=== PATIENT | female | born 1945 | race Caucasian/White ===

== ENCOUNTER → 2017-10-20 | Outpatient (CLI) | payer MEDICARE, OTHER ==
[~2017-10-20] MED LIST: ALPR1TAB7 PO; ASPI-231 PO; FLUO-125 PO; FURO20TA PO; LORA1TAB12 PO; METO-169 PO; OMEP20CA74 PO; OXY5T PO; PAR20T PO; POTA8TAB2 PO; PROP1CAP PO; WARF5TAB71 PO; [UNRECOGNIZED DRUG - CODE]
[2017-10-20 10:44] LABS: Basophils # (auto) 0 uL; Basophils % (auto) 0.3 % (0.0-2.0); Eosinophils # (auto) 0.1 uL; Eosinophils % (auto) 0.8 % (0.0-7.0); Hematocrit 48.8 % (36.0-46.0); Hemoglobin 16.4 g/dL (12.2-16.2); Lymphocytes # (auto) 2.5 uL; Lymphocytes % (auto) 26.6 % (10.0-50.0); Mean Corpuscular Hemoglobin 31.5 pg (28.0-32.0); Mean Corpuscular Hgb Conc. 33.5 g/dL (32.0-36.0); Monocytes # (auto) 0.7 uL; Monocytes % (auto) 7.4 % (0.0-12.0); Neutrophils # (auto) 6.2 uL; Neutrophils % (auto) 64.9 % (37.0-80.0); Platelet Count (auto) 299 10^3/uL (140-450); Red Blood Cells 5.19 10^6/uL (4.0-5.20); Red Cell Distribution Width 13.7 % (11.8-14.3); White Blood Cell 9.5 10^3/uL (4.4-10.8)
[2017-10-20 11:05] LABS: Albumin 3.9 g/dL (3.4-5.0); Bilirubin, Total 0.6 mg/dL (0.2-1.0); Calcium 9.3 mg/dL (8.5-10.1); Potassium 4.3 mmol/L (3.5-5.1)
== END | disposition home or self-care (01) ==
LOC: LAB 10:05
PROVIDERS: ATTEND Physician Assistant
DX: J44.9 Chronic obstructive pulmonary disease, unspecified (principal); E11.319 Type 2 diabetes mellitus with unspecified diabetic retinopathy without macular edema; N18.2 Chronic kidney disease, stage 2 (mild); F41.1 Generalized anxiety disorder
CPT/HCPCS: 36415; 80053; 80061; 83036; 85025

== ENCOUNTER → 2018-06-15 | Outpatient (CLI) | payer MEDICARE ==
[2018-06-15 11:02] LABS: Basophils # (auto) 0 uL; Basophils % (auto) 0.3 % (0.0-2.0); Eosinophils # (auto) 0.1 uL; Eosinophils % (auto) 0.8 % (0.0-7.0); Hematocrit 48.5 % (36.0-46.0); Hemoglobin 16.2 g/dL (12.2-16.2); Lymphocytes # (auto) 2.2 uL; Lymphocytes % (auto) 27.4 % (10.0-50.0); Mean Corpuscular Hemoglobin 32.3 pg (28.0-32.0); Mean Corpuscular Hgb Conc. 33.4 g/dL (32.0-36.0); Mean Corpuscular Volume 96.8 fL (80.0-100.0); Monocytes # (auto) 0.6 uL; Neutrophils # (auto) 5.1 uL; Neutrophils % (auto) 63.5 % (37.0-80.0); Nucleated Red Blood Cells % 0.1 %; Platelet Count (auto) 285 10^3/uL (140-450); Red Blood Cells 5.01 10^6/uL (4.0-5.20); White Blood Cell 8.1 10^3/uL (4.4-10.8)
[2018-06-15 11:39] LABS: Potassium 4.8 mmol/L (3.5-5.1)
[2018-06-15 11:46] LABS: BUN/Creatinine Ratio 10.8; Bilirubin, Total 0.4 mg/dL (0.2-1.0); Calcium 9.5 mg/dL (8.5-10.1); Total Protein 7.9 g/dL (6.4-8.2)
== END | disposition home or self-care (01) ==
LOC: LAB 10:47
PROVIDERS: ATTEND Physician Assistant
DX: E11.319 Type 2 diabetes mellitus with unspecified diabetic retinopathy without macular edema (principal); E78.00 Pure hypercholesterolemia, unspecified; J44.9 Chronic obstructive pulmonary disease, unspecified; I11.0 Hypertensive heart disease with heart failure; I50.30 Unspecified diastolic (congestive) heart failure
CPT/HCPCS: 36415; 80053; 80061; 83036; 85025

== ENCOUNTER 2018-07-20 12:15 | Inpatient (IN) | payer MEDICARE, OTHER ==
[~2018-07-20] VITALS: Ht 154.9 cm; Wt 58.9 kg
[2018-07-20] MEDS ORDERED: SODIUM CHLORIDE 0.9% 1,000 ML IV ONE ×3 (12:34→16:00)
[2018-07-20] MEDS ORDERED: IPRATROPIUM BROM 0.5 MG/2.5ML INH SOL HHN ONE (13:15)
[2018-07-20] MEDS ORDERED: methylPREDNISolone SOD SUCC 125 MG/2 ML VL IV ONE (13:15)
[2018-07-20] MEDS ORDERED: ALBUTEROL SULF 2.5 MG/0.5ML(0.5%) NEB SOLN HHN ONE (13:15)
[2018-07-20 13:25] LABS: Basophils # (auto) 0.1 uL; Basophils % (auto) 0.5 % (0.0-2.0); Eosinophils # (auto) 0 uL; Hematocrit 46.6 % (36.0-46.0); Hemoglobin 15.7 g/dL (12.2-16.2); Lymphocytes # (auto) 1.2 uL; Mean Corpuscular Hemoglobin 32.3 pg (28.0-32.0); Mean Corpuscular Hgb Conc. 33.6 g/dL (32.0-36.0); Monocytes # (auto) 1.1 uL; Monocytes % (auto) 5.8 % (0.0-12.0); Neutrophils # (auto) 17.2 uL; Neutrophils % (auto) 87.7 % (37.0-80.0); Platelet Count (auto) 374 10^3/uL (140-450); Red Blood Cells 4.85 10^6/uL (4.0-5.20); White Blood Cell 19.6 10^3/uL (4.4-10.8)
[2018-07-20] MEDS ORDERED: LEVOFLOXACIN 500MG 100 ML IV ONE (14:00)
[2018-07-20 14:21] LABS: Urine Bacteria NONE SEEN /hpf (None Seen); Urine Blood 2+ /uL (Negative); Urine WBC 2 /hpf (0 - 5)
[2018-07-20 14:23] LABS: Albumin 4.2 g/dL (3.4-5.0); Calcium 9.5 mg/dL (8.5-10.1); Potassium 3.1 mmol/L (3.5-5.1)
[2018-07-20 14:25] LABS: BUN/Creatinine Ratio 13.3; Bilirubin, Total 0.7 mg/dL (0.2-1.0); Total Protein 8.6 g/dL (6.4-8.2)
[2018-07-20] MEDS ORDERED: LORazepam 2MG/ML-1ML VIAL IV ONE (14:45)
[2018-07-20 14:48] LABS: Lactic Acid w/Reflex 2.4 mmol/L (0.4-2.0)
[2018-07-20] MEDS ORDERED: VANCOMYCIN PER PHARMACY 0 MG IV SCH (16:00)
[2018-07-20] MEDS ORDERED: HYDROcodone-ACET 5/325MG TAB PO PRN (16:00)
[2018-07-20] MEDS ORDERED: PANTOPRAZOLE 40 MG/10 ML VIAL IV ONE (16:00)
[2018-07-20] MEDS ORDERED: PIPERACILLIN-TAZOB 3.375GM 100 ML IV ONE (16:00)
[2018-07-20] MEDS ORDERED: NITROGLYCERIN 0.4 MG SL TAB SL PRN (16:00)
[2018-07-20] MEDS ORDERED: DEXTROSE (50%) 50ML SYRG IV PRN (16:00)
[2018-07-20] MEDS: POTASSIUM CHL 20MEQ/100ML 100 ML IV SCH ×2 (16:00→18:22)
[2018-07-20] MEDS ORDERED: MORPHINE SULFATE 4 MG/ML SYR/VIAL IV PRN (16:00)
[2018-07-20 16:28] LABS: INR 1.07 (0.9-1.15); Partial Thromboplastin Time 27.4 sec (23.78-33.04); Prothrombin Time 11.4 sec (9.27-12.13)
[2018-07-20 16:30] LABS: Alcohol, Urine < 3.0 mg/dL (0-5); Amphetamine Screen, Urine NEGATIVE (NEGATIVE); Barbiturate Scree,Urine NEGATIVE (NEGATIVE); Benzodiazephine Screen, Urine NEGATIVE (NEGATIVE); Cannabinoid Screen, Urine NEGATIVE (NEGATIVE); Cocaine Screen, Urine NEGATIVE (NEGATIVE); Opiate Scree,Urine NEGATIVE (NEGATIVE); Phencyclidine Screen, Urine NEGATIVE (NEGATIVE)
[2018-07-20] MEDS ORDERED: VANCOMYCIN 750 MG in D5W 5% 250 ML IV SCH (17:00)
[2018-07-20] MEDS: InsuLIN REG 1unit/0.01ml Soln (100units/ml) SC SCH (17:58)
[2018-07-20] MEDS: ACCU-CHEK COMFORT CURVE STRIP VI SCH ×2 (18:03→23:31)
[2018-07-20] MEDS: BUDESONIDE (INHALATION) 0.5 MG/2 ML NEB NEB SCH (18:20)
[2018-07-20] MEDS: IPRATROPIUM BROM 0.5 MG/2.5ML INH SOL NEB SCH (18:20)
[2018-07-20] MEDS: ALBUTEROL SULF 2.5 MG/0.5ML(0.5%) NEB SOLN NEB PRN (18:32)
[2018-07-20] MEDS: PIPERACILLIN-TAZOB 3.375GM 100 ML IV SCH (21:35)
--- NOTE | 2018-07-20 23:55 | NUR ---
Admit to [facility] TOBY ABBOTT admitted to [facility], A/O x 4 via gurney on cardiac sonographer, and portable 02. Patient transfered to bed, connected to unit monitoring, sinus tachycardia 112 and oxygen @ 2L/min, SPO2 98%, and weighed by bedscale. Patient oriented to Julien Queen, primary RN, unit, room, bed, and unit policies regarding patient care and visiting hours. All questions and concerns addressed, patient verbalized understanding. NOTE: MRSA swab in the nares done.
[2018-07-21] MEDS: InsuLIN REG 1unit/0.01ml Soln (100units/ml) SC SCH ×4 (00:29→18:44)
[2018-07-21] MEDS: ONDANSETRON HCL 4 MG/2 ML VIAL IV PRN ×3 (02:19→20:30)
[2018-07-21] MEDS: HYDROmorphone HCL 2 MG/ML VL IV PRN ×4 (02:19→20:31)
--- NOTE | 2018-07-21 02:19 | NUR ---
PAIN/NAUSEA: Pt c/o abdominal pain at level 6/10 and nausea. Pt requesting medication for pain. Pt states she does not think she would be able to hold down a pill d/t nausea. Pt requesting IV medication. Pt medicated w/ Dilaudid 0.5mg IV and Zofran 4mg IV as per order. To continue to monitor pt.
[2018-07-21 03:05] VITALS: BP 124/81
[2018-07-21 05:18] LABS: Basophils # (auto) 0 uL; Basophils % (auto) 0.1 % (0.0-2.0); Eosinophils # (auto) 0 uL; Hematocrit 41.1 % (36.0-46.0); Hemoglobin 13.8 g/dL (12.2-16.2); Lymphocytes # (auto) 0.9 uL; Lymphocytes % (auto) 8.4 % (10.0-50.0); Mean Corpuscular Hgb Conc. 33.6 g/dL (32.0-36.0); Mean Corpuscular Volume 95.1 fL (80.0-100.0); Monocytes # (auto) 0.4 uL; Monocytes % (auto) 3.9 % (0.0-12.0); Neutrophils # (auto) 9.7 uL; Neutrophils % (auto) 87.6 % (37.0-80.0); Platelet Count (auto) 279 10^3/uL (140-450); Red Blood Cells 4.32 10^6/uL (4.0-5.20); Red Cell Distribution Width 12.9 % (11.8-14.3)
--- NOTE | 2018-07-21 05:18 | NUR ---
Med rec reviewed and belonging list completed
[2018-07-21 05:34] LABS: INR 1.06 (0.9-1.15); Partial Thromboplastin Time 25.1 sec (23.78-33.04); Prothrombin Time 11.3 sec (9.27-12.13)
[2018-07-21 05:41] LABS: Alanine Aminotransferase 27 U/L (13-56); Alkaline Phosphatase 64 U/L (45-117); Aspartate Aminotransferase 22 U/L (15-37); Bilirubin, Total 0.4 mg/dL (0.2-1.0); GFR African American 146 mL/min; GFR Non-African American 121 mL/min; Total Protein 6.6 g/dL (6.4-8.2)
[2018-07-21 06:18] LABS: Anion Gap 12 (5-15); BUN/Creatinine Ratio 11.3; Blood Urea Nitrogen 6 mg/dL (7-18); Calcium 7.9 mg/dL (8.5-10.1); Carbon Dioxide 19 mmol/L (21-32); Chloride 109 mmol/L (98-107); Glucose 168 mg/dL (74-106); Potassium 3.3 mmol/L (3.5-5.1); Sodium 140 mmol/L (136-145)
[2018-07-21] MEDS: ACCU-CHEK COMFORT CURVE STRIP VI SCH ×3 (06:18→18:32)
[2018-07-21 06:19] LABS: Albumin 3.1 g/dL (3.4-5.0)
[2018-07-21] MEDS: PIPERACILLIN-TAZOB 3.375GM 100 ML IV SCH ×3 (06:20→21:04)
[2018-07-21] MEDS: IPRATROPIUM BROM 0.5 MG/2.5ML INH SOL NEB SCH ×4 (06:49→18:32)
[2018-07-21 08:15] VITALS: BP 120/68
--- NOTE | 2018-07-21 08:15 | NUR ---
Opening Shift Note Assumed care of patient, awake and alert. No S/S of distress/SOB or pain. Bed locked on low position, side rails up x2, bed alarms on at all times, call lin within reach, instructed on POC and to call for assist PRN, will continue to monitor for changes Q1hr and PRN.
[2018-07-21] MEDS ORDERED: PANTOPRAZOLE 40 MG/10 ML VIAL IV SCH ×2 (10:00→22:00)
[2018-07-21] MEDS: ALBUTEROL SULF 2.5 MG/0.5ML(0.5%) NEB SOLN NEB PRN ×2 (10:03→14:09)
[2018-07-21] MEDS: BUDESONIDE (INHALATION) 0.5 MG/2 ML NEB NEB SCH ×2 (10:03→18:32)
[2018-07-21 11:50] VITALS: BP 117/65
--- NOTE | 2018-07-21 12:00 | NUR ---
Patient's accucheck 147mg/dl. 2 units Insulin held. Patient on clear liquid diet with poor oral intake. Will continue to monitor.
[2018-07-21] MEDS ORDERED: POTASSIUM CHL 20 Meq TABLET PO ONE (13:15)
--- NOTE | 2018-07-21 13:19 | NUR ---
Dr Zhang at bedside, updated on patient's status. Will carry out new orders.
--- NOTE | 2018-07-21 14:16 | NUR ---
Dr Adams at bedside, updated on patient's status. Will carry out new orders.
[2018-07-21] MEDS: LORazepam 2MG/ML-1ML VIAL IV PRN (14:18)
[2018-07-21 15:55] VITALS: BP 121/65
--- NOTE | 2018-07-21 19:30 | NUR ---
SHIFT OPENING NOTE RECEIVED PATIENT AWAKE, ALERT AND ORIENTED X4. NO SOB, DISTRESS OR PAIN NOTED. ON 3L N/C. ELIAS CATH DRAINING CLEAR YELLOW URINE. INSTRUCTED ON POC AND TO CALL FOR ASSIST NEEDED. BED IS IN THE LOWEST POSITION WITH SIDE RAILS UP X2, CALL LIGHT IS WITHIN REACH.
[2018-07-21 19:55] VITALS: BP 133/75
--- NOTE | 2018-07-21 20:08 | NUR ---
FAMILY AT BEDSIDE IN FOR A SHORT VISIT.
--- NOTE | 2018-07-21 20:40 | NUR ---
CONSENTS SIGNED FOR EGD PROCEDURE TOMORROW PLACED IN FRONT OF HARD CHART. PATIENT FULLY AWARE OF REASON AND RISKS.
[2018-07-21 23:55] VITALS: BP 134/76
[2018-07-22] VITALS (7 sets, daily range): BP systolic 117–135; BP diastolic 71–82
[2018-07-22] MEDS: ACCU-CHEK COMFORT CURVE STRIP VI SCH ×4 (00:30→18:00)
--- NOTE | 2018-07-22 00:30 | NUR ---
ROUNDS PATIENT LAYING IN BED SLEEPING. NO SOB, DISTRESS, ANXIETY OR PAIN NOTED. VS STABLE. WILL CONTINUE TO MONITOR CLOSELY.
[2018-07-22] MEDS: LORazepam 2MG/ML-1ML VIAL IV PRN ×2 (01:46→10:35)
--- NOTE | 2018-07-22 03:40 | NUR ---
MORNING HYGIENE CARE FULL BED BATH PERFORMED. FULL LINEN CHANGED PERFORMED. NEW SOCKS PLACED ON PATIENT. REPOSITIONED FOR COMFORT. TOLERATED IT WELL.
[2018-07-22] MEDS: ONDANSETRON HCL 4 MG/2 ML VIAL IV PRN ×2 (03:47→07:58)
[2018-07-22] MEDS: HYDROmorphone HCL 2 MG/ML VL IV PRN ×2 (03:47→07:57)
[2018-07-22 05:20] LABS: Basophils # (auto) 0 uL; Basophils % (auto) 0.2 % (0.0-2.0); Eosinophils # (auto) 0 uL; Hematocrit 42.3 % (36.0-46.0); Hemoglobin 14.3 g/dL (12.2-16.2); Lymphocytes # (auto) 1.3 uL; Lymphocytes % (auto) 11.2 % (10.0-50.0); Mean Corpuscular Hgb Conc. 33.9 g/dL (32.0-36.0); Mean Corpuscular Volume 94.2 fL (80.0-100.0); Monocytes # (auto) 0.8 uL; Neutrophils # (auto) 9.2 uL; Neutrophils % (auto) 81.6 % (37.0-80.0); Nucleated Red Blood Cells % 0.1 %; Platelet Count (auto) 291 10^3/uL (140-450); Red Blood Cells 4.49 10^6/uL (4.0-5.20); Red Cell Distribution Width 12.9 % (11.8-14.3); White Blood Cell 11.3 10^3/uL (4.4-10.8)
[2018-07-22] MEDS: InsuLIN REG 1unit/0.01ml Soln (100units/ml) SC SCH ×4 (05:28→18:00)
[2018-07-22] MEDS: PIPERACILLIN-TAZOB 3.375GM 100 ML IV SCH ×2 (05:28→14:00)
[2018-07-22 05:40] LABS: Calcium 8.4 mg/dL (8.5-10.1)
[2018-07-22 05:42] LABS: BUN/Creatinine Ratio 11.4
--- NOTE | 2018-07-22 05:43 | NUR ---
REPORT GIVEN TO TASNEEM MADSEN IN TELE ALL QUESTIONS ANSWERED.
--- NOTE | 2018-07-22 05:47 | NUR ---
PATIENT TRANSPORTED TO ROOM 290B BY BOILING TUB OPERATOR YVONNE AND EVETTE LAM. CONNECTED TO PORTABLE 02. TRANSPORTED VIA BED. ALL BELONGINGS TAKEN WITH PATIENT.
[2018-07-22 05:50] LABS: Potassium 2.9 mmol/L (3.5-5.1)
--- NOTE | 2018-07-22 05:56 | NUR ---
Critical lab Patient's potassium this AM is 2.9, yesterday morning was 3.3. Patient NPO for EGD this AM. Hospitalist paged per protocol.
[2018-07-22] MEDS: BUDESONIDE (INHALATION) 0.5 MG/2 ML NEB NEB SCH (06:09)
[2018-07-22] MEDS: IPRATROPIUM BROM 0.5 MG/2.5ML INH SOL NEB SCH ×4 (06:10→18:58)
[2018-07-22] MEDS: ALBUTEROL SULF 2.5 MG/0.5ML(0.5%) NEB SOLN NEB PRN (06:10)
--- NOTE | 2018-07-22 06:50 | NUR ---
Return page Hospitalist Sarbjit returned page regarding critical lab. Updated on patient status and situation, new orders received for IV potassium.
[2018-07-22] MEDS ORDERED: POTASSIUM CHL 20MEQ/100ML 100 ML IV ONE (07:00)
--- NOTE | 2018-07-22 07:00 | NUR ---
Potassium Potassium not available through pyxis as of yet. Patient still running zosyn IV. Will endorse to day shift RN.
--- NOTE | 2018-07-22 07:52 | NUR ---
Potassium started This RN started potassium at request of day shift RN.
--- NOTE | 2018-07-22 07:57 | NUR ---
Patient with facial grimacing noted, stated her back and legs hurt, pain level at 10/10 at this time. Patient stated she's nauseous. Dilaudid Inj given for pain, Zofran Inj given for nausea. Patient scheduled for EGD today.
--- NOTE | 2018-07-22 08:03 | NUR ---
Called Pre Op. Spoke with Pre Op RN Manisha. Manisha said she's waiting for a call back from Roger Hamilton regarding patient's K = 2.9*L. Patient on Potassium Chl 20 Meq as ordered. Patient scheduled for EGD today. Manisha to call me back.
[2018-07-22] MEDS ORDERED: NALOXONE HCL 0.4 MG/ML VIAL ONE (08:50)
[2018-07-22] MEDS ORDERED: SODIUM CHLORIDE LOCK 10 ML ONE (08:51)
[2018-07-22] MEDS ORDERED: FLUMAZENIL 0.1 MG/ML INJ 10ML MDV IV ONE (08:51)
[2018-07-22] MEDS ORDERED: MIDAZOLAM HCL 5 MG/ML-1ML VIAL ONE (08:51)
[2018-07-22] MEDS ORDERED: fentaNYL CITRATE 100 MCG/2 ML VL ONE (08:51)
[2018-07-22] MEDS ORDERED: diphenhdrAMINE 50mg/ml (500mg/10ml VIAL) ONE (08:51)
[2018-07-22] MEDS ORDERED: LIDOCAINE VISCOUS 2% 15ML UD ONE (08:51)
--- NOTE | 2018-07-22 09:00 | NUR ---
Transferred patient via bed to Pre Op for EGD. Patient awake, oriented x4. No acute distress noted. Two IV lines intact and patent. Endorsed patient to Pre Op RN Manisha.
[2018-07-22] MEDS ORDERED: PANTOPRAZOLE 40 MG TAB PO SCH (10:00)
--- NOTE | 2018-07-22 10:06 | NUR ---
Patient back to room post EGD. Patient awake, oriented x4. No acute distress noted. New diet ordered by Roger Hamilton Bed alarm on.
--- NOTE | 2018-07-22 10:07 | NUR ---
Wrist watch and Life Alert bracelet given back to patient.
--- NOTE | 2018-07-22 10:35 | NUR ---
Patient stated she's having anxiety, asked for Ativan. Ativan IVP given as ordered.
--- NOTE | 2018-07-22 13:50 | NUR ---
Dr. Zhang ordered to check O2 Sat on room air.
[2018-07-22] MEDS ORDERED: POTASSIUM CHL 20 Meq TABLET PO ONE (14:00)
--- NOTE | 2018-07-22 14:00 | NUR ---
PT REFUSED MED NEB TX, PT SAID SHE IS BEING DISCHARGE AND DOESN'T NEED A TX. PT IN NO RESPIRATORY DISTRESS, NO SOB NOTED. PT ON 2L NC WITH A SPO2 94%, HR 108, RR 18 WITH CLEAR/DIMINISHED BS. WILL CONTINUE TO MONITOR PT.
--- NOTE | 2018-07-22 14:05 | NUR ---
O2 Sat from 91% to 90% to 89% to 87% to 84% on Room air. Dr. Zhang made aware. Patient placed back on O2 at 2 LPM via nasal cannula. O2 Sat at 92% to 93% on O2 at 2 LPM via nasal cannula. Heart Rate >100.
--- NOTE | 2018-07-22 14:37 | NUR ---
Potassium level as per Laboratory at 1508 pm as ordered. Pending [facility] w/ co ox.
--- NOTE | 2018-07-22 14:40 | NUR ---
RT at bedside for ABGs.
--- NOTE | 2018-07-22 14:57 | NUR ---
Respiratory Therapist spoke with Dr. Zhang that patient qualifies for home O2. to put in new orders.
--- NOTE | 2018-07-22 14:58 | NUR ---
Dr. Zhang to put in orders for home O2.
--- NOTE | 2018-07-22 15:16 | NUR ---
Paged Dr. Zhang. Waiting for MD to call back.
--- NOTE | 2018-07-22 15:17 | NUR ---
Dr. Zhang called back. to put in orders for home O2.
--- NOTE | 2018-07-22 15:20 | NUR ---
Called Tooling Manager Nakita. Phone on voicemail. Left a message to call back.
--- NOTE | 2018-07-22 15:32 | NUR ---
Spoke with Flow Trader Nakita regarding orders for home O2.
--- NOTE | 2018-07-22 16:00 | NUR ---
assessment Per consult home 02 ar 2L/min via nasal canula continuous. Patient qualifies per ABG. PERRY order sent to [facility] [phone]. Waiting on reply back of ETA now. Addendum: 07/22/18 at 1601 by Nakita Ponce Amended: Links added.
--- NOTE | 2018-07-22 16:30 | NUR ---
Explained to patient she has orders for discharge today, but she needs home O2 as per MD. O2 Sat drops to as low as 84% on room air, patient qualifies for home O2 as per ABGs. Risks and benefits explained regarding the need for home oxygen. Patient said she's willing to wait for the home O2.
--- NOTE | 2018-07-22 16:34 | NUR ---
Patient stated she's in pain. [place] 5/325 PO given as ordered.
--- NOTE | 2018-07-22 17:00 | NUR ---
Received a call from Yakelin pereira [facility]. Yakelin said the home O2 will be delivered at bedside after an hour. Patient made aware.
--- NOTE | 2018-07-22 17:10 | NUR ---
Received a call from Lay that he will be delivering the portable O2 at bedside in half an hour.
--- NOTE | 2018-07-22 17:15 | NUR ---
Removed Johnson catheter. About 75 ml of clear, yellowish urine collected from the Johnson catheter bag.
--- NOTE | 2018-07-22 18:10 | NUR ---
Portable O2 with nasal cannula delivered by personnel from [facility] at bedside. Patient said she was instructed how to use it.
--- NOTE | 2018-07-22 18:55 | NUR ---
Patient on portable O2 before discharge. Addendum: 07/22/18 at 1901 by Leanna Hess RN at 2 LPM
--- NOTE | 2018-07-22 18:59 | NUR ---
Discharge instructions given as ordered. Encourage to follow up with PMD as instructed. All questions and concerns addressed. Patient verbalized understanding. Medication reconciliation form completed and copy given to patient. IV removed with catheter intact, pressure dressing applied, Johnson catheter removed. Telemetry unit returned to [facility]. Patient taken to vehicle via wheelchair with all personal belongings, accompanied by staff and family member. No distress noted at time of departure.
--- NOTE | 2018-07-23 11:58 | NUR ---
re-assessment 02 was delivered to bedside last night. Addendum: 07/26/18 at 1159 by Nakita AREVALO Amended: Links added.
== END 2018-07-22 19:00 | disposition home or self-care (01) | DRG 871 ==
LOC: ER 12:16 → OBSVTOIN 15:58 → OVERFLOW 15:58 → DOU IN ICU 23:35 → TELE-WESTW 07-22 05:52
PROVIDERS: ADMIT Internal Medicine; ATTEND Internal Medicine
PROC: 0DB68ZX Excision of Stomach, Via Natural or Artificial Opening Endoscopic, Diagnostic (ICD-10-PCS; principal; 2018-07-22 09:13)
DX: A41.9 Sepsis, unspecified organism (principal); J96.00 Acute respiratory failure, unspecified whether with hypoxia or hypercapnia; J18.9 Pneumonia, unspecified organism; K86.1 Other chronic pancreatitis; E87.1 Hypo-osmolality and hyponatremia; J44.1 Chronic obstructive pulmonary disease with (acute) exacerbation; K29.80 Duodenitis without bleeding; K29.70 Gastritis, unspecified, without bleeding; I10 Essential (primary) hypertension; F41.9 Anxiety disorder, unspecified; F32.9 Major depressive disorder, single episode, unspecified; R63.0 Anorexia; E11.9 Type 2 diabetes mellitus without complications; F17.210 Nicotine dependence, cigarettes, uncomplicated; Z79.899 Other long term (current) drug therapy; Z90.49 Acquired absence of other specified parts of digestive tract; Z98.51 Tubal ligation status; Z68.24 Body mass index [BMI] 24.0-24.9, adult; Z88.1 Allergy status to other antibiotic agents; Z88.5 Allergy status to narcotic agent
CPT/HCPCS: 36415; 36600; 71045; 74176; 80048; 80053; 80307; 81001; 82805; 82962; 83036; 83605; 83690; 84132; 84484; 85025; 85610; 85730; 86850; 86900; 86901; 87040; 87081; 93005; 93306; 94640; 94644; 96365; 96366; 96367; 96372; 96375; A6257; C9113; G0378; J1200; J1815; J1956; J2250; J2405; J2543; J3480; J7060

== ENCOUNTER → 2018-10-14 | Outpatient (CLI) | payer MEDICARE, OTHER ==
[~2018-10-14] MED LIST changes: +ALBUTEROL SULF 2.5 MG/0.5ML(0.5%) NEB SOLN ONE; -ASPI-231 PO; -FURO20TA PO; -OMEP20CA74 PO; -OXY5T PO; -PAR20T PO; -WARF5TAB71 PO; -[UNRECOGNIZED DRUG - CODE]
== END | disposition home or self-care (01) ==
LOC: RT 08:32
PROVIDERS: ATTEND Internal Medicine Pulmonary Disease
DX: J44.9 Chronic obstructive pulmonary disease, unspecified (principal)
CPT/HCPCS: 94060; J7611

== ENCOUNTER 2018-10-21 09:55 | Emergency (ER) | payer MEDICARE, OTHER ==
[~2018-10-21] VITALS: Ht 154.9 cm; Wt 54.9 kg
[~2018-10-21 09:55] MED LIST changes: -ALBUTEROL SULF 2.5 MG/0.5ML(0.5%) NEB SOLN ONE
[2018-10-21 11:45] LABS: Basophils # (auto) 0 uL; Basophils % (auto) 0.2 % (0.0-2.0); Eosinophils # (auto) 0 uL; Hematocrit 39.2 % (36.0-46.0); Hemoglobin 13.1 g/dL (12.2-16.2); Lymphocytes # (auto) 0.8 uL; Lymphocytes % (auto) 23.1 % (10.0-50.0); Mean Corpuscular Hemoglobin 31.3 pg (28.0-32.0); Mean Corpuscular Hgb Conc. 33.5 g/dL (32.0-36.0); Mean Corpuscular Volume 93.6 fL (80.0-100.0); Monocytes # (auto) 0.4 uL; Monocytes % (auto) 10.8 % (0.0-12.0); Neutrophils # (auto) 2.3 uL; Neutrophils % (auto) 65.9 % (37.0-80.0); Platelet Count (auto) 227 10^3/uL (140-450); Red Blood Cells 4.19 10^6/uL (4.0-5.20); Red Cell Distribution Width 13.6 % (11.8-14.3); White Blood Cell 3.4 10^3/uL (4.4-10.8)
[2018-10-21 12:29] LABS: Albumin 3.5 g/dL (3.4-5.0); Anion Gap 9 (5-15); Blood Urea Nitrogen 7 mg/dL (7-18); Calcium 8.7 mg/dL (8.5-10.1); Carbon Dioxide 26 mmol/L (21-32); Chloride 100 mmol/L (98-107); Glucose 178 mg/dL (74-106); Potassium 3.9 mmol/L (3.5-5.1); Sodium 135 mmol/L (136-145)
[2018-10-21 12:34] LABS: Alanine Aminotransferase 51 U/L (13-56); Alkaline Phosphatase 82 U/L (45-117); Aspartate Aminotransferase 29 U/L (15-37); BUN/Creatinine Ratio 11.1; Bilirubin, Total 0.3 mg/dL (0.2-1.0); GFR African American 119 mL/min; GFR Non-African American 99 mL/min; Total Protein 7.6 g/dL (6.4-8.2)
[2018-10-21 15:36] VITALS: BP 123/54
== END 2018-10-21 15:16 | disposition home or self-care (01) ==
LOC: ER 09:55
DX: J44.9 Chronic obstructive pulmonary disease, unspecified (principal); F41.9 Anxiety disorder, unspecified; F32.9 Major depressive disorder, single episode, unspecified; E11.9 Type 2 diabetes mellitus without complications; I10 Essential (primary) hypertension; R51 Headache; Z90.49 Acquired absence of other specified parts of digestive tract; Z98.51 Tubal ligation status
CPT/HCPCS: 36415; 71046; 80053; 84484; 85025; 93005

== ENCOUNTER 2018-10-26 14:06 | Emergency (ER) | payer MEDICARE, OTHER ==
[~2018-10-26] VITALS: Ht 154.9 cm; Wt 54.9 kg
[2018-10-26 14:30] VITALS: BP 135/43
[2018-10-26 15:13] LABS: Basophils # (auto) 0 uL; Eosinophils # (auto) 0 uL; Eosinophils % (auto) 0.4 % (0.0-7.0); Monocytes # (auto) 0.4 uL; Neutrophils # (auto) 2.9 uL; White Blood Cell 4.7 10^3/uL (4.4-10.8)
[2018-10-26 15:14] LABS: Basophils % (auto) 0.3 % (0.0-2.0); Hematocrit 45.3 % (36.0-46.0); Hemoglobin 15.1 g/dL (12.2-16.2); Lymphocytes # (auto) 1.4 uL; Mean Corpuscular Hemoglobin 31.3 pg (28.0-32.0); Mean Corpuscular Hgb Conc. 33.4 g/dL (32.0-36.0); Mean Corpuscular Volume 93.7 fL (80.0-100.0); Monocytes % (auto) 9.3 % (0.0-12.0); Platelet Count (auto) 453 10^3/uL (140-450); Red Blood Cells 4.83 10^6/uL (4.0-5.20); Red Cell Distribution Width 13.3 % (11.8-14.3)
[2018-10-26 15:35] LABS: Albumin 4.1 g/dL (3.4-5.0); Anion Gap 8 (5-15); Blood Urea Nitrogen 8 mg/dL (7-18); Calcium 9.2 mg/dL (8.5-10.1); Carbon Dioxide 28 mmol/L (21-32); Chloride 102 mmol/L (98-107); Glucose 101 mg/dL (74-106); Potassium 3.9 mmol/L (3.5-5.1); Sodium 138 mmol/L (136-145)
[2018-10-26 15:41] LABS: Alanine Aminotransferase 39 U/L (13-56); Alkaline Phosphatase 79 U/L (45-117); Aspartate Aminotransferase 24 U/L (15-37); BUN/Creatinine Ratio 10.7; Bilirubin, Total 0.5 mg/dL (0.2-1.0); GFR African American 98 mL/min; GFR Non-African American 81 mL/min; Total Protein 8.5 g/dL (6.4-8.2)
== END 2018-10-27 04:48 | disposition left against medical advice (07) ==
LOC: ER 14:06 → EDBD 14:06 → ER 10-27 04:48
DX: R53.1 Weakness (principal); R06.02 Shortness of breath; R10.9 Unspecified abdominal pain; Z53.21 Procedure and treatment not carried out due to patient leaving prior to being seen by health care provider
CPT/HCPCS: 36415; 71045; 80053; 84484; 85025; 93005

== ENCOUNTER → 2021-07-09 | Outpatient (CLI) | payer MEDICARE, OTHER ==
[~2021-07-09] MED LIST changes: -LORA1TAB12 PO; +LORA1TAB23 PO; -METO-169 PO; +METO-289 PO
[2021-07-09 12:04] LABS: Basophils # (auto) 0 10 ^3/uL (0-0.2); Basophils % (auto) 0.3 % (0.0-2.0); Eosinophils # (auto) 0 10 ^3/uL (0-0.8); Eosinophils % (auto) 0.5 % (0.0-7.0); Hematocrit 40.2 % (36.0-46.0); Hemoglobin 13.5 g/dL (12.2-16.2); Lymphocytes # (auto) 1.9 10 ^3/uL (0.4-5.4); Lymphocytes % (auto) 21.9 % (10.0-50.0); Mean Corpuscular Hgb Conc. 33.6 g/dL (32.0-36.0); Mean Corpuscular Volume 92.3 fL (80.0-100.0); Monocytes # (auto) 0.5 10 ^3/uL (0-1.3); Monocytes % (auto) 6.2 % (0.0-12.0); Neutrophils # (auto) 6.3 10 ^3/uL (1.6-8.6); Neutrophils % (auto) 71.1 % (37.0-80.0); Red Blood Cells 4.35 10^6/uL (4.0-5.20); Red Cell Distribution Width 12.9 % (11.8-14.3); White Blood Cell 8.8 10^3/uL (4.4-10.8)
[2021-07-09 13:10] LABS: Albumin 3.7 g/dL (3.4-5.0); Calcium 8.8 mg/dL (8.5-10.1); Potassium 5.2 mmol/L (3.5-5.1)
[2021-07-09 13:13] LABS: BUN/Creatinine Ratio 14.1; Bilirubin, Total 0.4 mg/dL (0.2-1.0); Total Protein 7.4 g/dL (6.4-8.2)
== END | disposition home or self-care (01) ==
LOC: LAB 11:32
PROVIDERS: ATTEND Internal Medicine
DX: C34.91 Malignant neoplasm of unspecified part of right bronchus or lung (principal)
CPT/HCPCS: 36415; 80053; 80074; 83615; 85025